=== PATIENT | male | born 1960 | race Caucasian/White ===

== ENCOUNTER → 2024-04-06 | Outpatient (CLI) | payer OTHER | LOC: M EKG 07:49 | PROVIDERS: ATTEND Physician Assistant | DX: I48.0 Paroxysmal atrial fibrillation (principal) ==

== ENCOUNTER → 2025-05-27 | Outpatient (CLI) | payer MEDICARE | LOC: M RAD 10:54 | PROVIDERS: ATTEND Physician Assistant Surgical | DX: M17.11 Unilateral primary osteoarthritis, right knee (principal); M22.2X1 Patellofemoral disorders, right knee; M25.461 Effusion, right knee; M94.261 Chondromalacia, right knee; M71.21 Synovial cyst of popliteal space [Baker], right knee ==